=== PATIENT | female | born 1980 | race Caucasian/White ===

== ENCOUNTER 2021-03-03 10:07 | Outpatient (REF) | payer MEDICAID, SELFPAY ==
[2021-03-03 10:51] LABS: COVID-19 Test Negative (Negative)
== END 2021-03-03 10:08 | disposition home or self-care (01) ==
LOC: HO.LAB 10:07
PROVIDERS: Visit Provider Internal Medicine
DX: Z20.822 Contact with and (suspected) exposure to COVID-19 (principal)
CPT/HCPCS: 36415; 87635; C9803

== ENCOUNTER 2021-03-10 08:43 | Outpatient (REF) | payer MEDICAID, SELFPAY ==
[2021-03-10 09:08] LABS: COVID-19 Test Positive (Negative)
== END 2021-03-10 08:44 | disposition home or self-care (01) ==
LOC: HO.LAB 08:43
PROVIDERS: Visit Provider Internal Medicine
DX: Z20.822 Contact with and (suspected) exposure to COVID-19 (principal)
CPT/HCPCS: 36415; 87635; C9803

== ENCOUNTER 2021-03-14 07:41 | Outpatient (REF) | payer OTHER, SELFPAY ==
[2021-03-14 08:26] LABS: COVID-19 Test Negative (Negative)
== END 2021-03-14 07:42 | disposition home or self-care (01) ==
LOC: HO.LAB 07:41
PROVIDERS: Visit Provider Internal Medicine
DX: Z20.822 Contact with and (suspected) exposure to COVID-19 (principal)
CPT/HCPCS: 36415; 87635; C9803